=== PATIENT | female | born 1975 | race Asian ===

== ENCOUNTER 2016-12-03 18:31 | Emergency (ER) | payer OTHER ==
[~2016-12-03] VITALS: Ht 157.5 cm; Wt 54.4 kg
[~2016-12-03 18:31] MED LIST: HYDR12.55 PO
[2016-12-03 18:35] VITALS: BP_SYST 165
[2016-12-03] MEDS ORDERED: KETOROLAC TROMETHAMINE 30 MG VIAL IVP ONE (19:45)
[2016-12-03] MEDS ORDERED: PROCHLORPERAZINE EDISYLATE 10 MG/2 ML VIAL IVP ONE (19:45)
[2016-12-03] MEDS ORDERED: DEXAMETHASONE SOD PHOSPHATE 10 MG/ML VIAL IVP ONE (19:45)
[2016-12-03] MEDS ORDERED: NACL 0.9% 1,000 ML IV ONE (19:45)
[2016-12-03] MEDS ORDERED: LORazepam 2 MG/ML VIAL (FOR ER USE) IVP ONE (19:45)
[2016-12-03 22:17] VITALS: BP_SYST 144
== END 2016-12-03 22:17 | disposition home or self-care (01) ==
LOC: SED 18:31
DX: R41.3 Other amnesia (principal); R45.7 State of emotional shock and stress, unspecified; I10 Essential (primary) hypertension; G43.909 Migraine, unspecified, not intractable, without status migrainosus
CPT/HCPCS: 96361; 96374; 96375; 99284; J0780; J1100; J1885; J2060; J7030

== ENCOUNTER 2018-07-09 14:04 | Emergency (ER) | payer OTHER ==
[~2018-07-09] VITALS: Ht 165.1 cm; Wt 54.4 kg
[2018-07-09 14:04] VITALS: BP_SYST 160
[2018-07-09] MEDS ORDERED: NACL 0.9% 1,000 ML IV ONE ×2 (14:15→19:15)
[2018-07-09] MEDS ORDERED: ACTIVATED CHARCOAL 50 GM ORAL.SUSP PO ONE (14:15)
[2018-07-09] MEDS ORDERED: ONDANSETRON HCL 4 MG/2 ML VIAL IVP ONE (14:30)
[2018-07-09] MEDS ORDERED: ONDANSETRON HCL 4 MG/2 ML VIAL ONE (14:36)
[2018-07-09 14:41] LABS: BASOPHILS # (AUTO) 0.1 K/uL (0.0-0.2); BASOPHILS % (AUTO) 2.1 % (0.0-2.0); EOSINOPHILS # (AUTO) 0.1 K/uL (0.0-0.4); EOSINOPHILS % (AUTO) 1.3 % (0.0-4.0); HEMATOCRIT 45.5 % (36-48); HEMOGLOBIN 14.4 g/dL (12.0-16.0); LYMPHOCYTES # (AUTO) 1.7 K/uL (1.0-5.5); LYMPHOCYTES % (AUTO) 27.2 % (20.5-51.5); MEAN CORPUSCULAR HEMOGLOBIN 29 pg (27-31); MEAN CORPUSCULAR HGB CONC 32 % (32-36); MEAN CORPUSCULAR VOLUME 91 fL (79.0-98.0); MONOCYTES # (AUTO) 0.5 K/uL (0.0-1.0); MONOCYTES % (AUTO) 7.6 % (1.7-9.3); NEUTROPHILS % (AUTO) 61.8 % (40.0-70.0); PLATELET COUNT (AUTO) 257 K/uL (130-430); RED BLOOD CELL COUNT(AUTO) 5.03 MIL/uL (4.2-6.2); RED CELL DISTRIBUTION WIDTH 12.9 % (9.0-15.0); WHITE BLOOD COUNT (AUTO) 6.4 K/uL (4.8-10.8)
[2018-07-09 14:45] LABS: ANION GAP 12 (5-15); CALCIUM 9.3 mg/dL (8.4-11.0); CHLORIDE 101 mmol/L (98-107); CREATININE 0.58 mg/dL (0.55-1.30); GLUCOSE 107 mg/dL (70-99); POTASSIUM 4.3 mmol/L (3.5-5.1); SODIUM SERUM 138 mmol/L (136-145); UREA NITROGEN, BLOOD 9 mg/dL (8-21)
[2018-07-09 14:48] LABS: GFR AFRICAN AMERICAN 147 mL/min (>90)
[2018-07-09 14:51] LABS: ALANINE AMINOTRANSFERASE 21 U/L (12-78); ALBUMIN 4.1 g/dL (3.4-4.8); ALCOHOL, BLOOD < 3 mg/dL (<10); ASPARTATE AMINOTRANSFERASE 30 U/L (10-37); TOTAL BILIRUBIN 0.5 mg/dL (0.0-1.0)
[2018-07-09 14:52] LABS: ACETAMINOPHEN 153 ug/mL (1-30)
[2018-07-09 15:19] LABS: BARBITURATE, URINE NEGATIVE (NEG <=200); BENZODIAZEPINE, URINE NEGATIVE (NEG <=150); CANNABINOID, URINE NEGATIVE (NEG <=50); COCAINE, URINE NEGATIVE (NEG <=150); METHAMPHETAMINES SCREEN,URINE NEGATIVE (NEG <=500); URINE AMPHETAMINE NEGATIVE (NEG <=500); URINE METHADONE NEGATIVE (NEG <=200)
[2018-07-09 15:20] LABS: OPIATE, URINE NEGATIVE (NEG <=100); PHENCYCLIDINE SCREEN,URINE NEGATIVE (NEG <=25); UR TRICYCLIC ANTIDEPRESSANTS NEGATIVE (NEG <=300); URINE OXYCODONE SCREEN NEGATIVE (NEG <=100); URINE PROPOXYPHENE SCREEN NEGATIVE (NEG <=300)
[2018-07-09] MEDS ORDERED: PROMETHAZINE HCL 25 MG/ML AMP IVP ONE (16:00)
[2018-07-09] MEDS ORDERED: ACETYLCYSTEINE IV 0 MG in D5W 200 ML IV ONE (19:00)
[2018-07-09] MEDS ORDERED: ACETYLCYSTEINE IV 6000 MG/30 ML VIAL IV ONE (19:21)
[2018-07-09 19:49] LABS: INR 1.1 (0.8-1.2); PROTHROMBIN TIME 10.7 SECS (9.5-12.5)
[2018-07-09 19:51] LABS: ALBUMIN 3.2 g/dL (3.4-4.8); BILIRUBIN,DIRECT 0.1 mg/dL (0.0-0.3); TOTAL BILIRUBIN 0.2 mg/dL (0.0-1.0)
[2018-07-09] MEDS ORDERED: D5W IV ONE (20:15)
[2018-07-09] MEDS ORDERED: ACETYLCYSTEINE IV ONE (20:15)
[2018-07-09] MEDS ORDERED: COMMUNICATION ORDER XX ONE (20:15)
[2018-07-09 21:15] VITALS: BP_SYST 145
== END 2018-07-09 21:15 | disposition short-term general hospital (02) ==
LOC: SED 14:04
DX: T14.91XA Suicide attempt, initial encounter (principal); T39.1X2A Poisoning by 4-Aminophenol derivatives, intentional self-harm, initial encounter; F32.9 Major depressive disorder, single episode, unspecified; I10 Essential (primary) hypertension; Y92.89 Other specified places as the place of occurrence of the external cause; Y93.89 Activity, other specified; Y99.8 Other external cause status
CPT/HCPCS: 36415; 80053; 80076; 80307; 85025; 85610; 96365; 96375; 99285; G0480; G0481; G0482; J0132; J2405; J2550; J7030